=== PATIENT | male | born 1975 | race Caucasian/White ===

== ENCOUNTER 2018-08-30 03:09 | Emergency (ER) | payer MEDICAID ==
[~2018-08-30] VITALS: Ht 180.3 cm; Wt 96.2 kg
[2018-08-30 04:09] LABS: microscopic required? NO
[2018-08-30 04:25] LABS: BASOPHIL % 0.4 % (0-2); PLATELET COUNT 191 x10^3mcL (130-400); RED CELL DISTRIBUTION WIDTH 13.8 % (11.5-14.5)
[2018-08-30 04:35] LABS: CALCIUM 8.8 mg/dL (8.5-10.1); CARBON DIOXIDE 28.2 mmol/L (21-32); CHLORIDE SERUM 104 mmol/L (98-107); CREATININE SERUM 1.1 mg/dL (0.7-1.3); GFR1 > 60 mL/min; GLUCOSE SERUM 112 mg/dL (74-106); POTASSIUM SERUM 4.1 mmol/L (3.5-5.1); SODIUM SERUM 137 mmol/L (136-145)
[2018-08-30 04:36] LABS: urine erythrocyte NEGATIVE (NEGATIVE)
[2018-08-30 04:39] LABS: ALBUMIN 3.6 g/dL (3.4-5.0); ALKALINE PHOSPHATASE 77 U/L (46-116); ALT/SGPT 53 U/L (16-63); AST/SGOT 27 U/L (15-37); BILIRUBIN TOTAL 1.12 mg/dL (0.20-1.00); LIPASE 92 IU/L (73-393); TOTAL PROTEIN, SERUM 7.4 g/dL (6.4-8.2)
[2018-08-30 06:20] VITALS: BP 125/79
== END 2018-08-30 06:20 | disposition home or self-care (01) ==
LOC: ED 03:09
PROVIDERS: Emergency Medicine
DX: R10.11 Right upper quadrant pain (principal); R10.12 Left upper quadrant pain; M54.9 Dorsalgia, unspecified; R11.0 Nausea; Z88.5 Allergy status to narcotic agent
CPT/HCPCS: 36415; J1885; Q0162

== ENCOUNTER 2019-01-26 07:57 | Emergency (ER) | payer MEDICAID ==
[~2019-01-26] VITALS: Ht 180.3 cm; Wt 97.5 kg
[2019-01-26 08:01] VITALS: Ht 180.3 cm; Wt 97.5 kg
[2019-01-26 11:33] VITALS: BP 121/78
== END 2019-01-26 11:33 | disposition home or self-care (01) ==
LOC: ED 07:57
DX: R21 Rash and other nonspecific skin eruption (principal); Z88.5 Allergy status to narcotic agent

== ENCOUNTER 2020-07-13 23:39 | Emergency (ER) | payer MEDICAID ==
[~2020-07-13] VITALS: Ht 177.8 cm; Wt 98.9 kg
[2020-07-13 23:47] VITALS: Ht 177.8 cm; Wt 98.9 kg
[2020-07-14 00:16] VITALS: BP 119/86
== END 2020-07-14 00:58 | disposition home or self-care (01) ==
LOC: ED 23:39
DX: H11.32 Conjunctival hemorrhage, left eye (principal); R51 Headache